=== PATIENT | female | born 1935 | race Caucasian/White ===

== ENCOUNTER 2016-09-10 13:27 | Emergency (ER) | payer MEDICARE, MEDICAID ==
[2016-09-10] MEDS ORDERED: Sodium Chloride 0.9% 500 ML IV ONE (13:44)
--- NOTE | 2016-09-10 13:51 | EDM.PDOC ---
[id number] 09/10/16 13:27 Source: Reports: Patient, Family History Limitations: Reports: Other (abd. pain.) - History of Present Illness INITIAL COMMENTS - FREE TEXT/NARRATIVE: 81 years old w f s/p total hysterectomy came to the ed with her granddaughter due to acute onset of gen abd. pain after breakfast in a sitting position. Pt stated she did not have a BM for 3 days. No trauma. Pt is resting during the day mainly in supine position due to her severe dizziness in upright position. BP was 99/57 puls was 68. 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 Symptom Onset Date: 09/10/16 Symptom Onset Time: 07:00 Timing/Duration: Reports: Hour(s):, Sudden onset Location: generalized Quality: Reports: cramping, fullness, stabbing, throbbing Severity: moderate Improves with: Reports: defecating Worsens with: Reports: palpation, sitting up Context: Reports: other (no BM for 3 days.) Associated Symptoms (-Female): Reports: constipation - Related Data Allergies/ADRs: Allergies Allergy/AdvReac Type Severity Reaction Status Date / Time No Known Allergies Allergy Verified 09/10/16 16:09 Home Meds: Home Meds Dicyclomine [Bentyl] 10 mg PO QIDACANDBED PRN #20 cap 09/10/16 [Rx] Levofloxacin 500 mg PO DAILY #10 tablet 09/10/16 [Rx] Pantoprazole Sodium [Protonix] 40 mg PO DAILY #30 suspdr.pkt 09/10/16 [Rx] ED ROS GENERAL - Review of Systems Review Of Systems: See Below Constitutional: Reports: decreased appetite, weight loss HEENT: Reports: No symptoms Respiratory: Reports: No Symptoms Cardiovascular: Reports: No symptoms Endocrine: Reports: no symptoms GI/Abdominal: Reports: Abdominal pain : Reports: no symptoms Musculoskeletal: Reports: no symptoms Skin: Reports: no symptoms Neurological: Reports: Other (chronic dizziness) Psychiatric: Reports: No symptoms Hematologic/Lymphatic: Reports: anemia Immunologic: Reports: no symptoms ED EXAM, GI/ABD - Physical Exam Exam: See Below Exam Limited By: Physical impairment General Appearance: alert, WD/WN, cachetic Eyes: bilateral: normal appearance Ears: normal external exam, normal canal Nose: normal inspection, normal mucosa Throat/Mouth: Other (dry mucosal membrane) Head: atraumatic, normocephalic Neck: normal inspection, supple, non-tender, full range of motion Respiratory/Chest: no respiratory distress, lungs clear, normal breath sounds Cardiovascular: normal peripheral pulses, regular rate, rhythm, no edema GI/Abdominal: hypoactive bowel sounds, tenderness, distention, guarding, rebound , rigidity (r mid abdomen) (Female) Exam: Deferred Rectal (Female) Exam: Deferred Back Exam: normal inspection, full range of motion Extremities: normal inspection, normal range of motion, non-tender, no pedal edema Neurological: alert, oriented, CN II-XII intact, normal cognition, abnormal gait (due to dizziness) Psychiatric: normal affect Skin Exam: Pallor Lymphatic: no adenopathy EKG INTERPRETATION EKG Date: 09/10/16 Time: 14:10 Rhythm: NSR Rate (beats/min): 63 Thurman: normal P-wave: present QRS: normal ST-T: normal QT: normal Comparison: NA - no prior EKG Course - Vital Signs Text/Narrative:: 81 years old w f s/p total hysterectomy came to the ed with her granddaughter due to acute onset of gen abd. pain after breakfast in a sitting position. Pt stated she did not have a BM for 3 days. No trauma. Pt is resting during the day mainly in supine position due to her severe dizziness in upright position. BP was 99/57 puls was 68. 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 PE: 81 y.o.w.f cachectic with gen abd. pain, guarding at r mid and left lower abd. Imaging: Abd flat/upright: Nonspecifid BGP. CT abd: sigmoid diverticulosis, official report is pending Labs: Anemia UA pos for UTI Impression: Diverticulosis, Gastritis, UTI Tx: Morphin sulfate, Levoquine, NS, Protonix Reexam: Improved Plan: D/C with instructions. Last Recorded V/S: Last Vital Signs Temp 36.6 C 09/10/16 14:45 Pulse 64 09/10/16 13:30 Resp 16 09/10/16 16:45 BP 116/56 L 09/10/16 16:45 Pulse Ox 99 09/10/16 16:45 - Orders/Labs/Meds Labs: Laboratory Tests 03/31/17 03/31/17 03/31/17 Range/Units 14:00 14:00 14:00 WBC 8.7 (4.5-12.0) X10-3/uL RBC 4.48 (3.23-5.20) x10(6)uL Hgb 8.7 L (11.5-15.5) g/dL Hct 28.9 L (30.0-51.3) % MCV 64.5 L (80-96) fL MCH 19.5 L (27.7-33.6) pg MCHC 30.3 L (32.2-35.4) g/dL RDW 17.5 H (11.5-15.5) % Plt Count 376 H (125-369) X10(3)uL MPV 9.1 (7.4-10.4) fL Add Manual Diff Yes Neutrophils % (Manual) 71 (46-82) % Lymphocytes % (Manual) 22 (13-37) % Monocytes % (Manual) 5 (4-12) % Eosinophils % (Manual) 2 (0-5) % Hypochromasia Moderate H Poikilocytosis Few Anisocytosis Few Microcytosis Many H Ovalocytes Moderate H PT 10.1 (8.7-11.1) INR 1.00 (0.89-1.13) Sodium 131 L (135-145) mmol/L Potassium 4.1 (3.5-5.3) mmol/L Chloride 101 (100-110) mmol/L Carbon Dioxide 21 L (23-29) mmol/L BUN 18 (8-23) mg/dL Creatinine 1.4 H (0.6-1.3) mg/dL Est Cr Clr Drug Dosing TNP Estimated GFR (MDRD) 36 L (>60) BUN/Creatinine Ratio 12.9 (9-20) Glucose 150 H (80-116) mg/dL Calcium 8.9 (8.6-10.2) mg/dL Urine Color (YELLOW) Urine Appearance (CLEAR) Urine pH (5.0-6.5) Ur Specific Jasper (1.010-1.025) Urine Protein (NEGATIVE) mg/dL Urine Glucose (UA) (NEGATIVE) mg/dL Urine Ketones (NEGATIVE) mg/dL Urine Occult Blood (NEGATIVE) Urine Nitrite (NEGATIVE) Urine Bilirubin (NEGATIVE) Urine Urobilinogen (NEGATIVE) mg/dL Ur Leukocyte Esterase (NEGATIVE) Urine RBC (0) Urine WBC (0) Ur Squamous Epith Cells (NS,R,O) Urine Bacteria (NS) Hyaline Casts (NS) Urine Mucus (NS) 09/10/16 Range/Units 15:20 WBC (4.5-12.0) X10-3/uL RBC (3.23-5.20) x10(6)uL Hgb (11.5-15.5) g/dL Hct (30.0-51.3) % MCV (80-96) fL MCH (27.7-33.6) pg MCHC (32.2-35.4) g/dL RDW (11.5-15.5) % Plt Count (125-369) X10(3)uL MPV (7.4-10.4) fL Add Manual Diff Neutrophils % (Manual) (46-82) % Lymphocytes % (Manual) (13-37) % Monocytes % (Manual) (4-12) % Eosinophils % (Manual) (0-5) % Hypochromasia Poikilocytosis Anisocytosis Microcytosis Ovalocytes PT (8.7-11.1) INR (0.89-1.13) Sodium (135-145) mmol/L Potassium (3.5-5.3) mmol/L Chloride (100-110) mmol/L Carbon Dioxide (23-29) mmol/L BUN (8-23) mg/dL Creatinine (0.6-1.3) mg/dL Est Cr Clr Drug Dosing Estimated GFR (MDRD) (>60) BUN/Creatinine Ratio (9-20) Glucose (80-116) mg/dL Calcium (8.6-10.2) mg/dL Urine Color Yellow (YELLOW) Urine Appearance Slightly cloudy (CLEAR) Urine pH 6.0 (5.0-6.5) Ur Specific Jasper 1.025 (1.010-1.025) Urine Protein Negative (NEGATIVE) mg/dL Urine Glucose (UA) Normal (NEGATIVE) mg/dL Urine Ketones Negative (NEGATIVE) mg/dL Urine Occult Blood Negative (NEGATIVE) Urine Nitrite Negative (NEGATIVE) Urine Bilirubin Small H (NEGATIVE) Urine Urobilinogen 1 H (NEGATIVE) mg/dL Ur Leukocyte Esterase Moderate H (NEGATIVE) Urine RBC 0-5 (0) Urine WBC 10-20 H (0) Ur Squamous Epith Cells Few H (NS,R,O) Urine Bacteria Moderate H (NS) Hyaline Casts Few H (NS) Urine Mucus Few H (NS) Meds: Medications Discontinued Medications Generic Name Dose Route Start Last Admin Trade Name Freq PRN Reason Stop Dose Admin Sodium Chloride 500 mls @ 999 mls/hr 09/10/16 13:44 09/10/16 16:34 Normal Saline IV 09/10/16 14:14 Not Given .BOLUS ONE Sodium Chloride 500 mls @ 999 mls/hr 09/10/16 14:00 09/10/16 14:30 Normal Saline IV 999 mls/hr ASDIRECTED SHANNON Administration Iopamidol 75 ml 09/10/16 16:20 09/10/16 16:22 Isovue-370 (76%) IV 09/10/16 16:21 75 ml ONETIME ONE Administration Levofloxacin 500 mg 09/10/16 15:46 09/10/16 16:29 Levaquin PO 09/10/16 15:47 500 mg ONETIME STA Administration Morphine Sulfate 1 mg 09/10/16 15:34 09/10/16 15:50 Morphine IVPUSH 09/10/16 15:35 1 mg ONETIME ONE Administration Departure - Departure Time of Disposition: 16:57 Disposition: Home, Self-Care 01 Condition: good Clinical Impression: Anemia Diverticula, colon Qualifiers: Diverticulosis bleeding: diverticulosis without bleeding Qualified Code(s): K57.30 - Diverticulosis of large intestine without perforation or abscess without bleeding UTI (urinary tract infection) Qualifiers: Urinary tract infection type: acute cystitis Hematuria presence: without hematuria Qualified Code(s): N30.00 - Acute cystitis without hematuria Gastritis Qualifiers: Gastritis type: unspecified gastritis Chronicity: chronic Gastritis bleeding: without bleeding Qualified Code(s): K29.50 - Unspecified chronic gastritis without bleeding Prescriptions: Dicyclomine [Bentyl] 10 mg PO QIDACANDBED PRN #20 cap PRN Reason: abdominal spasm Levofloxacin 500 mg PO DAILY #10 tablet Pantoprazole Sodium [Protonix] 40 mg PO DAILY #30 suspdr.pkt Referrals: Tanvir Fierro MD [Primary Care Provider] - Forms: ED Department Discharge Additional Instructions: Please increase water intake, please take the meds as recommended, please f/u, please come back to the ed if symptoms get worse acutely
[2016-09-10] MEDS ORDERED: Sodium Chloride 0.9% 500 ML IV SCH (14:00)
[2016-09-10] MEDS ORDERED: Morphine 2 MG/ML Syringe IVPUSH ONE (15:34)
[2016-09-10] MEDS ORDERED: Levofloxacin 500 MG Tab PO STA (15:46)
[2016-09-10] MEDS ORDERED: Iopamidol 755 Mg/ML 75 ML Bottle IV ONE (16:20)
[2016-09-10 18:06] VITALS: BP 116/56
--- NOTE | 2016-09-13 10:35 | CR ---
INDICATION: Abdominal pain. No BM times 3 days. History of constipation. ABDOMEN: Four images of the abdomen were obtained in supine and decubitus projections and revealed a minimal air-fluid level at what appears to be the cecum of questionable significance - it could be related to fluid intake. No distention of the bowel or free air was identified - no findings to strongly suggest a mechanically obstructive process was seen with gas and stool in the area of the rectosigmoid and rectum. No definite organomegaly, mass lesions, or nonvascular pathologic calcifications were identified. Calcifications are noted in the abdominal aorta. A metallic device is noted overlying L5. IMPRESSION: Nonacute abdomen. MTDD
--- NOTE | 2016-09-13 11:02 | CT ---
INDICATION: Left lower quadrant pain for a few weeks, anemia. CT ABDOMEN AND PELVIS WITH CONTRAST: Spiral 2.5-mm axial sections were obtained through the abdomen and pelvis with oral and IV contrast, with sagittal and coronal reconstructions. Initial study was obtained without IV contrast also through the abdomen and pelvis. The study was obtained 2016. No comparisons were available. Total Exam DLP = 939.91 mGy-cm. There is some minimal patchy density seen at the left lower lobe and lingula, most likely fibrotic in nature. Minimal linear atelectasis and even minimal patchy pneumonia could be present with this appearance, however. Relatively mild emphysematous changes are also suggested in the lungs. The heart did not appear grossly enlarged. No gallstones or renal calculi were identified. Calcifications are relatively mild in the abdominal aorta, iliac, and femoral arteries. The uterus is absent, compatible with history of its removal. Urinary bladder had a normal appearance. There is evidence of sigmoid diverticulosis without definite evidence of diverticulitis. The liver, spleen, pancreas, and adrenals appear normal. The kidneys have a fairly normal appearance, without evidence of obstructive uropathy. No retroperitoneal masses were identified, with minimal retroperitoneal lymphadenopathy. No findings to strongly suggest a bowel obstruction could be identified. What appears to be the appendix appeared normal and relatively short on image # 72 coronal and #124 axial. Dextroconcave scoliosis upper lumbar spine is noted. Degenerative disk disease is noted at L1-2 with sclerosis, hypertrophic changes bridging the disk space and vacuum disk phenomenon. Disk disease is also noted with bulging disk at L2- 3 and L4-5 with additional grade 1-2 anterolisthesis at L4-5. No specific abnormality to strongly identify a left lower quadrant pain etiology was identified. There is a metallic device at the posterior elements of L4-5, apparently for the spondylolisthesis at that level. No organomegaly, mass lesions, or free fluid collections were identified in the abdomen or pelvis. IMPRESSION: 1. Sigmoid diverticulosis without definite evidence of diverticulitis. 2. Mild ASD. 3. Degenerative changes and disk disease post surgical spine additionally. 4. Scoliosis. 5. No specific etiology for the patients left lower quadrant abdominal pain, although, with diverticulosis in the sigmoid colon area, the possibility of a minimal degree of diverticulitis is difficult to entirely exclude. 6. Post hysterectomy. CT PELVIS: Examination of the pelvis was obtained by CT, as noted above, and revealed postsurgical change at L4-5 posterior elements. Sigmoid diverticulosis is noted, without definite evidence of diverticulitis, but should be correlated clinically in that regard. The uterus is absent, compatible with history of its removal. Report was called to Dr. Grant at 1649 hours, 09/10/2016. [facility]
== END 2016-09-10 17:23 | disposition home or self-care (01) ==
LOC: FB.ED 13:27
DX: K57.30 Diverticulosis of large intestine without perforation or abscess without bleeding (principal); K29.50 Unspecified chronic gastritis without bleeding; N30.00 Acute cystitis without hematuria; Z79.899 Other long term (current) drug therapy; D64.9 Anemia, unspecified
CPT/HCPCS: 36415; 74020; 74177; 80048; 81001; 85025; 85610; 87086; 87088; 87186; 93005; 96374; 99284; 99285; A9270; J2270; J7040; Q9967

== ENCOUNTER 2016-09-28 06:44 | Day surgery (SDC) | payer MEDICARE, MEDICAID ==
[2016-09-28] MEDS ORDERED: Lactated Ringers 1,000 ML IV SCH (06:45)
[2016-09-28] MEDS ORDERED: Midazolam 1 MG/ML 2 ML SDV IV ONE (08:00)
[2016-09-28] MEDS ORDERED: Lidocaine 2% 100 MG/5 ML Syringe IVPUSH ONE (08:00)
[2016-09-28] MEDS ORDERED: Propofol 200 MG/20 ML SDV IV ONE (08:00)
[2016-09-28] MEDS ORDERED: Simethicone Drops 40 MG/0.6 ML 30 ML Bottle ONE (08:32)
--- NOTE | 2016-09-28 08:44 | PCM.OPNOTE ---
- General Post-Op/Procedure Note Date of Surgery/Procedure: 09/28/16 Operative Procedure(s): egd with bx. c scope with bx Findings: gastritis esophagitis ascending colon polyp Pre Op Diagnosis: constipation. abd pain epigastric Post-Op Diagnosis: gastritis esophagitis. ascending colon polyp. diverticulosis Anesthesia Technique: MAC Primary Surgeon: Ze Alexandra Anesthesia Provider: Cathy Dominguez Pathology: stomach, esophagus ascending colon polyp Complications: None Condition: Good Free Text/Narrative:: see dictation
--- NOTE | 2016-09-28 09:09 | OR ---
DATE OF OPERATION: 09/28/2016 SURGEON: Ze Alexandra MD PROCEDURE PERFORMED: Esophagogastroduodenoscopy with cold forceps biopsy and colonoscopy with cold forceps biopsy. PREOPERATIVE DIAGNOSES: Epigastric abdominal pain and constipation. POSTOPERATIVE DIAGNOSES: Mild gastritis, questionable esophagitis, and ascending colon polyp as well as diverticulosis of the cecum and sigmoid colon. INDICATIONS FOR PROCEDURE: This is a 81-year-old white female, who is referred with the above-mentioned complaints. She was offered and accepted a colonoscopy and an upper endoscopy. DESCRIPTION OF OPERATION: After an excellent IV sedation was administered, the bite block was inserted. The flexible endoscope was passed without difficulty down the patient's esophagus into the stomach. The stomach was insufflated. Scope was passed through the pylorus to the second portion of the duodenum and slowly withdrawn. The following findings were noted. Duodenum was unremarkable. Stomach demonstrated some mild inflammation, biopsies were taken. Distal esophagus, Z-line was irregular at 40 cm, and there was a slight suggestion of esophagitis, biopsies were taken. The remainder of the esophageal exam was unremarkable. Attention was then turned to the colon. Digital rectal exam was performed. No marked abnormality was noted. The flexible colonoscope was inserted and advanced to the cecum. The prep was excellent. The following findings were noted. Ascending colon, a small polyp, biopsied. This was near the cecum, and there were 3 diverticulum noted in the cecum as well. Transverse colon, unremarkable. Descending colon, unremarkable. Sigmoid, mild diverticulosis. Rectum and anus unremarkable. Colon was deflated. The scope was removed. The patient tolerated the procedure well and was taken to recovery in good condition. /[id number] /MODL
[2016-09-28 10:37] VITALS: BP 137/60
== END 2016-09-28 10:20 | disposition home or self-care (01) ==
LOC: FB.SDS 06:44
PROVIDERS: ATTEND Surgery
DX: K29.50 Unspecified chronic gastritis without bleeding (principal); K31.9 Disease of stomach and duodenum, unspecified; K22.70 Barrett's esophagus without dysplasia; D12.2 Benign neoplasm of ascending colon; K57.30 Diverticulosis of large intestine without perforation or abscess without bleeding; I10 Essential (primary) hypertension; F41.9 Anxiety disorder, unspecified; F32.9 Major depressive disorder, single episode, unspecified; M54.5 Low back pain; G89.29 Other chronic pain; E53.8 Deficiency of other specified B group vitamins; K59.00 Constipation, unspecified; F17.210 Nicotine dependence, cigarettes, uncomplicated; Z79.899 Other long term (current) drug therapy
CPT/HCPCS: 00810; 43239; 45380; 88305; 88313; 88342; A9270; J2250; J2704; J7120; 00834-QZ

== ENCOUNTER 2017-04-12 08:25 | Emergency (ER) | payer MEDICARE, MEDICAID ==
--- NOTE | 2017-04-12 08:39 | EDM.PDOC ---
ED HPI GENERAL MEDICAL PROBLEM - General Chief Complaint: General Stated Complaint: ILL OVER NIGHT Time Seen by Provider: 04/12/17 08:25 Source of Information: Reports: Patient, Family History Limitations: Reports: Altered Mental Status - History of Present Illness INITIAL COMMENTS - FREE TEXT/NARRATIVE: 81 years old w f came to the ed with her daughter because of a sore throat. The entire family has strep throat. Pt was scheduled for back surgery this am, a strep test was requested to clear her for surgery. Pt complains of HERNANDEZ as well , The worst headache ever. Pt complains of nausea as well. No F/C, No trauma. BP 143/63 temp 36.3 RR 15 Pulse ox 96% Onset: Today Onset Date: 04/12/17 Onset Time: 05:00 Duration: Hour(s):, Intermittent Location: Reports: Neck Quality: Reports: Ache, Burning Severity: Mild Improves with: Reports: Cold Therapy Worsens with: Reports: Eating Associated Symptoms: Reports: Other (worst headache ever.) Headache Pain Score (Numeric/FACES): 10 - Related Data Allergies Allergy/AdvReac Type Severity Reaction Status Date / Time No Known Allergies Allergy Verified 04/12/17 08:36 Home Meds: Home Meds Pantoprazole Sodium [Protonix] 40 mg PO DAILY #30 suspdr.pkt 09/10/16 [Rx] Cyanocobalamin (Vitamin B-12) [Cyanocobalamin Injection] 1,000 mcg IM ASDIRECTED 09/27/16 [History] Escitalopram [Lexapro] 5 mg PO DAILY 09/27/16 [History] Lisinopril [Prinivil] 5 mg PO DAILY PRN 09/27/16 [History] Dicyclomine [Bentyl] 10 mg PO QIDACANDBED PRN #20 cap 09/28/16 [Rx] Ferrous Sulfate 325 mg PO DAILY 09/28/16 [History] Ondansetron [Zofran] 8 mg PO QID PRN 09/28/16 [History] Amoxicillin/Potassium Clav [Augmentin 875-125 Tablet] 1 each PO BID #20 tablet 04/12/17 [Rx] Past Medical History HEENT History: Reports: Cataract, Impaired Vision Cardiovascular History: Reports: Hypertension Gastrointestinal History: Reports: Chronic Constipation PEST CONTROL PILOT History: Reports: Musculoskeletal History: Reports: Back Pain, Chronic Neurological History: Reports: Migraines, Neuropathy, Peripheral, Vertigo Psychiatric History: Reports: Anxiety, Depression Hematologic History: Reports: B12 Deficiency Immunologic History: Reports: None - Infectious Disease History Infectious Disease History: Reports: Chicken Pox, Measles - Past Surgical History Musculoskeletal Surgical History: Reports: Other (See Below) Social & Family History - Tobacco Use Smoking Status *Q: Current Every Day Smoker Years of Tobacco use: 20 Packs/Tins Daily: 0 - Caffeine Use Caffeine Use: Reports: Coffee, Soda - Recreational Drug Use Recreational Drug Use: No ED ROS GENERAL - Review of Systems Review Of Systems: See Below Constitutional: Reports: No Symptoms HEENT: Reports: Throat Pain Respiratory: Reports: No Symptoms Cardiovascular: Reports: No Symptoms Endocrine: Reports: No Symptoms GI/Abdominal: Reports: No Symptoms : Reports: No Symptoms Musculoskeletal: Reports: No Symptoms Skin: Reports: No Symptoms Neurological: Reports: No Symptoms Psychiatric: Reports: No Symptoms Hematologic/Lymphatic: Reports: No Symptoms Immunologic: Reports: No Symptoms ED EXAM, GENERAL - Physical Exam Exam: See Below Exam Limited By: No Limitations General Appearance: Alert, WD/WN, Thin Eye Exam: Bilateral Eye: Normal Inspection Ears: Normal External Exam Ear Exam: Bilateral Ear: Auricle Normal Nose: Normal Inspection, Normal Mucosa Throat/Mouth: No Airway Compromise, Other (Pharyngitis) Head: Atraumatic, Normocephalic Neck: Normal Inspection, Supple, Non-Tender Respiratory/Chest: No Respiratory Distress, Lungs Clear, Normal Breath Sounds Cardiovascular: Normal Peripheral Pulses, Regular Rate, Rhythm Peripheral Pulses: 0: Radial (L) GI/Abdominal: Normal Bowel Sounds, Soft, Non-Tender, No Organomegaly, No Distention (Female) Exam: Deferred Rectal (Female) Exam: Deferred Back Exam: Normal Inspection, Full Range of Motion Extremities: Normal Inspection, Normal Range of Motion, Non-Tender, No Pedal Edema Neurological: Alert, CN II-XII Intact, Normal Gait, Memory Loss Remote Events Psychiatric: Normal Affect, Normal Mood Skin Exam: Warm, Dry, Intact, Normal Color, No Rash Lymphatic: No Adenopathy Course - Vital Signs Text/Narrative:: 81 years old w f came to the ed with her daughter because of a sore throat. The entire family has strep throat. Pt was scheduled for back surgery this am, a strep test was requested to clear her for surgery. Pt complains of HERNANDEZ as well , The worst headache ever. Pt complains of nausea as well. No F/C, No trauma. Surgery was cancelled BP 143/63 temp 36.3 RR 15 Pulse ox 96% PE: WNWD thin WF, NAD H/A Sore throat, nausea Labs: Pos Strep test Imaging: CT head: NAD Impression: Tension H/A, Strep pharyngitis Tx: Augmentin, Zofran, Phenergen Reexam: Improved Plan: D/C with instruction Last Recorded V/S: Last Vital Signs Temp 37.2 C 04/12/17 08:25 Pulse 77 04/12/17 11:10 Resp 14 04/12/17 11:10 BP 133/44 L 04/12/17 11:10 Pulse Ox 98 04/12/17 11:10 - Orders/Labs/Meds Orders: Active Orders 24 hr Category Date Time Status Head wo Cont [CT] Stat Exams 04/12/17 08:49 Taken Meds: Medications Discontinued Medications Generic Name Dose Route Start Last Admin Trade Name Catherine PRN Reason Stop Dose Admin Amoxicillin/Clavulanate Potassium 1 tab 04/12/17 10:54 04/12/17 10:58 Augmentin 875 Mg/125 Mg PO 04/12/17 10:55 1 tab ONETIME ONE Administration Ketorolac Tromethamine 30 mg 04/12/17 09:45 04/12/17 10:27 Toradol IM 04/12/17 09:46 30 mg ONETIME ONE Administration Ondansetron HCl 8 mg 04/12/17 08:50 04/12/17 08:54 Zofran Odt PO 04/12/17 08:51 8 mg ONETIME ONE Administration Promethazine HCl 12.5 mg 04/12/17 09:45 04/12/17 10:27 Phenergan IM 04/12/17 09:46 12.5 mg ONETIME ONE Administration Departure - Departure Time of Disposition: 11:08 Disposition: Home, Self-Care 01 Condition: Good Clinical Impression: Pharyngitis Qualifiers: Pharyngitis/tonsillitis etiology: other specified organisms Qualified Code(s): J02.8 - Acute pharyngitis due to other specified organisms - Discharge Information Prescriptions: Amoxicillin/Potassium Clav [Augmentin 875-125 Tablet] 1 each PO BID #20 tablet Instructions: Pharyngitis Referrals: Tanvir Fierro MD [Primary Care Provider] - Forms: ED Department Discharge Additional Instructions: Please take Tylenol/motrin for pain, Please take augmentin as recommended, please f/u, come back to the ed if your symptoms get worse acutely - My Orders Last 24 Hours: My Active Orders 04/12/17 08:49 Head wo Cont [CT] Stat - Assessment/Plan Last 24 Hours: My Active Orders 04/12/17 08:49 Head wo Cont [CT] Stat
[2017-04-12] MEDS ORDERED: Ondansetron 8 MG Tab.DIS PO ONE (08:50)
[2017-04-12] MEDS ORDERED: Promethazine 25 MG/ML SDV IM ONE (09:45)
[2017-04-12] MEDS ORDERED: Ketorolac 30 MG/ML SDV IM ONE (09:45)
[2017-04-12] MEDS ORDERED: Amoxicillin/Clavulanate K 875-125 MG Tab PO ONE (10:54)
[2017-04-12 11:10] VITALS: BP 133/44
== END 2017-04-12 11:19 | disposition home or self-care (01) ==
LOC: FB.ED 08:25
DX: J02.8 Acute pharyngitis due to other specified organisms (principal); I10 Essential (primary) hypertension; F32.9 Major depressive disorder, single episode, unspecified; F17.210 Nicotine dependence, cigarettes, uncomplicated; Z79.899 Other long term (current) drug therapy
CPT/HCPCS: 70450; 87430; 96372; 99283; A9270; J1885; J2550

== ENCOUNTER 2017-04-16 11:19 | Emergency (ER) | payer MEDICARE, MEDICAID ==
--- NOTE | 2017-04-16 12:12 | EDM.PDOC ---
ED HPI GENERAL MEDICAL PROBLEM - General Chief Complaint: Lower Extremity Injury/Pain Stated Complaint: FELL, FOOT INJURY Time Seen by Provider: 04/16/17 11:32 Source of Information: Reports: Patient, Family History Limitations: Reports: No Limitations - History of Present Illness INITIAL COMMENTS - FREE TEXT/NARRATIVE: 81 y.o.w.f came with her granddaughter to to the ed after she injured her r ankle. Mechanism of injury is not known. Pt has pain when she applies weight on it. No other acute medical issues. No F/C/N/V/D Onset: Today Onset Date: 04/16/17 Onset Time: 07:00 Duration: Hour(s): Location: Reports: Lower Extremity, Right Quality: Reports: Burning, Dull Severity: Mild Improves with: Reports: Rest Worsens with: Reports: Movement Context: Reports: Trauma Associated Symptoms: Reports: No Other Symptoms Right Feet Pain Score (Numeric/FACES): 7 - Related Data Allergies Allergy/AdvReac Type Severity Reaction Status Date / Time No Known Allergies Allergy Verified 04/16/17 11:30 Home Meds: Home Meds Pantoprazole Sodium [Protonix] 40 mg PO DAILY #30 suspdr.pkt 09/10/16 [Rx] Cyanocobalamin (Vitamin B-12) [Cyanocobalamin Injection] 1,000 mcg IM ASDIRECTED 09/27/16 [History] Escitalopram [Lexapro] 5 mg PO DAILY 09/27/16 [History] Lisinopril [Prinivil] 5 mg PO DAILY PRN 09/27/16 [History] Dicyclomine [Bentyl] 10 mg PO QIDACANDBED PRN #20 cap 09/28/16 [Rx] Ferrous Sulfate 325 mg PO DAILY 09/28/16 [History] Ondansetron [Zofran] 8 mg PO QID PRN 09/28/16 [History] Amoxicillin/Potassium Clav [Augmentin 875-125 Tablet] 1 each PO BID #20 tablet 04/12/17 [Rx] Past Medical History HEENT History: Reports: Cataract, Impaired Vision Other HEENT History: wears glasses Cardiovascular History: Reports: Hypertension Gastrointestinal History: Reports: Chronic Constipation [employer]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: Musculoskeletal History: Reports: Back Pain, Chronic Neurological History: Reports: Migraines, Neuropathy, Peripheral, Vertigo Psychiatric History: Reports: Anxiety, Depression Hematologic History: Reports: B12 Deficiency Immunologic History: Reports: None - Infectious Disease History Infectious Disease History: Reports: Chicken Pox, Measles, Mumps - Past Surgical History Head Surgeries/Procedures: Reports: None HEENT Surgical History: Reports: Cataract Surgery Female Surgical History: Reports: Hysterectomy Musculoskeletal Surgical History: Reports: Other (See Below) Other Musculoskeletal Surgeries/Procedures:: back surgury Social & Family History - Family History Family Medical History: Noncontributory - Tobacco Use Smoking Status *Q: Current Every Day Smoker Years of Tobacco use: 65 Packs/Tins Daily: 0.1 - Caffeine Use Caffeine Use: Reports: Coffee - Recreational Drug Use Recreational Drug Use: No Review of Systems - Review of Systems Review Of Systems: See Below Constitutional: Reports: No Symptoms Eyes: Reports: No Symptoms Ears: Reports: No Symptoms Nose: Reports: No Symptoms Mouth/Throat: Reports: No Symptoms Respiratory: Reports: No Symptoms Cardiovascular: Reports: No Symptoms GI/Abdominal: Reports: No Symptoms Genitourinary: Reports: No Symptoms Musculoskeletal: Reports: Foot Pain Skin: Reports: No Symptoms Neurological: Reports: No Symptoms Psychiatric: Reports: No Symptoms ED EXAM, GENERAL - Physical Exam Exam: See Below Exam Limited By: No Limitations General Appearance: Alert, WD/WN, Mild Distress Eye Exam: Bilateral Eye: Normal Inspection Ears: Normal External Exam Ear Exam: Bilateral Ear: Auricle Normal Nose: Normal Inspection, Normal Mucosa Throat/Mouth: Normal Inspection Head: Atraumatic, Normocephalic Neck: Normal Inspection, Supple, Non-Tender Respiratory/Chest: No Respiratory Distress, Lungs Clear, Normal Breath Sounds Cardiovascular: Normal Peripheral Pulses, Regular Rate, Rhythm Peripheral Pulses: 1+: Radial (L), Radial (R) GI/Abdominal: Normal Bowel Sounds, Soft (Female) Exam: Deferred Rectal (Female) Exam: Deferred Back Exam: Normal Inspection, Full Range of Motion Extremities: Normal Inspection, Other (tender r ankle/foot) Neurological: Alert, Oriented, CN II-XII Intact, Normal Cognition, Normal Gait Psychiatric: Normal Affect, Normal Mood Skin Exam: Warm, Dry, Intact Lymphatic: No Adenopathy Course - Vital Signs Text/Narrative:: 81 y.o.w.f came with her granddaughter to to the ed after she injured her r ankle. Mechanism of injury is not known. Pt has pain when she applies weight on it. No other acute medical issues. No F/C/N/V/D PE: R ankle pain Imaging: R ankle/foot: NAD, official report is pending Impression: R foot sprain Tx: Genaro wrap Reexam: Improved Plan: D/C home with instruction Last Recorded V/S: Last Vital Signs Temp 36.1 C 04/16/17 11:32 Pulse 85 04/16/17 12:22 Resp 18 04/16/17 12:22 BP 132/54 L 04/16/17 12:22 Pulse Ox 97 04/16/17 12:22 - Orders/Labs/Meds Orders: Active Orders 24 hr Category Date Time Status Ankle Min 3V Rt [CR] Stat Exams 04/16/17 11:26 Taken Foot Comp Min 3V Rt [CR] Stat Exams 04/16/17 11:39 Taken Ice Bag [Ice Therapy] [OM.PC] Routine Oth 04/16/17 11:27 Ordered Departure - Departure Time of Disposition: 12:11 Disposition: Home, Self-Care 01 Condition: Good Clinical Impression: Foot sprain Qualifiers: Encounter type: initial encounter Laterality: right Qualified Code(s): S93.601A - Unspecified sprain of right foot, initial encounter - Discharge Information Referrals: Tanvir Fierro MD [Primary Care Provider] - Forms: ED Department Discharge Additional Instructions: Rest, ICE and elevation, please f/u, come back if acutely worse. - My Orders Last 24 Hours: My Active Orders 04/16/17 11:26 Ankle Min 3V Rt [CR] Stat 04/16/17 11:27 Ice Bag [Ice Therapy] [OM.PC] Routine 04/16/17 11:39 Foot Comp Min 3V Rt [CR] Stat - Assessment/Plan Last 24 Hours: My Active Orders 04/16/17 11:26 Ankle Min 3V Rt [CR] Stat 04/16/17 11:27 Ice Bag [Ice Therapy] [OM.PC] Routine 04/16/17 11:39 Foot Comp Min 3V Rt [CR] Stat
[2017-04-16 12:23] VITALS: BP 132/54
--- NOTE | 2017-04-18 11:57 | CR ---
INDICATION: Trauma, fell downstairs. Pain at the bottom of ankle/top of foot. RIGHT ANKLE: Three views of the right ankle revealed no evidence of an acute fracture, dislocation, or other significant bone or joint abnormality. IMPRESSION: Normal right ankle. MTDD
--- NOTE | 2017-04-18 12:00 | CR ---
INDICATION: Injury, swelling, and bruising. Trauma, fell downstairs. Pain at the bottom of ankle/top of foot. RIGHT FOOT: Three views of the right foot were obtained and revealed somewhat demineralized appearance, raising question of osteoporosis. This should be correlated clinically. Minimal degenerative changes are noted at the DIP joints and interphalangeal joint of the great toe. A fracture, dislocation, or other acute bone or joint abnormality was not identified. IMPRESSION: 1. No acute fracture or dislocation. 2. Minimal osteoarthritis. MTDD
== END 2017-04-16 12:20 | disposition home or self-care (01) ==
LOC: FB.ED 11:19
DX: S93.601A Unspecified sprain of right foot, initial encounter (principal); I10 Essential (primary) hypertension; F32.9 Major depressive disorder, single episode, unspecified; F17.210 Nicotine dependence, cigarettes, uncomplicated; Z79.899 Other long term (current) drug therapy; W10.9XXA Fall (on) (from) unspecified stairs and steps, initial encounter
CPT/HCPCS: 73610-RT; 73630-RT; 99283